=== PATIENT | female | born 1995 | race African-American/Black ===

== ENCOUNTER 2016-04-16 20:07 | Emergency (ER) | payer OTHER ==
[~2016-04-16] VITALS: Ht 165.1 cm; Wt 65.0 kg
[2016-04-16 20:15] VITALS: TEMP 36.7; Ht 165.1 cm; Wt 65.0 kg
[2016-04-16] MEDS ORDERED: CEFTRIAXONE SOD 350MG/ML 1 GM VIAL IM STA (20:30)
[2016-04-16] MEDS ORDERED: AZITHROMYCIN 250 MG TAB PO STA (20:30)
--- NOTE | 2016-04-16 20:45 | EMERGENCY ROOM VISIT NOTE ---
History First contact with patient: 20:26 Chief Complaint: STD FEMALE Stated Complaint: TESTED POSITIVE FOR GONORRHEA History of Present Illness The patient is a 21 year old female who presents to the Emergency Room requesting treatment for a positive gonorrhea test. The patient reports that she is sexually active with one male. The patient denies any vaginal drainage, pelvic pain or other symptoms. She denies any possibility of , and denies any prior history of STI. Review of Systems 6 system review was performed and was negative except for pertinent positives and negatives as indicated in history of present illness Social History Smoking Status: Never Smoker Alcohol Use: occasionally Drug Use: none Occupation Status: [employer] Current/Historical Medications Scheduled Control Pills ( Control Pills), 1 TAB PO DAILY Physical Exam Vital Signs Date Time Temp Pulse Resp B/P Pulse Ox O2 Delivery O2 Flow Rate FiO2 04/16/16 20:15 36.7 99 18 143/96 94 Room Air Physical Exam CONSTITUTIONAL: Healthy and well nourished. Alert and oriented X 3 with positive affect. HEENT: Normocephalic, atraumatic. Pupils equal, round and reactive. No scleral icterus or conjunctival injection. NECK: Full active range of motion without discomfort. GASTROINTESTINAL: Bowel sounds present in all quadrants. Abdomen is soft and nontender to palpation. GENITOURINARY: With a female nurse manager community present, speculum and bimanual pelvic exam were performed. Normal external genitalia. Speculum exam shows no abnormal fluid within the vaginal vault. Cervix was visualized with a nulliparous appearance. No cervical bleeding or drainage. Bimanual exam shows no adnexal tenderness to palpation. Negative cervical motion tenderness. MUSCULOSKELETAL: Full range of motion of all joints without discomfort. INTEGUMENTARY: No rash or other significant dermatologic conditions noted. NEUROLOGIC: No focal neurologic deficits noted. Medical Decision & Procedures Laboratory Results STD probes for GC and chlamydia were ordered and are pending. ED Course Patient history and physical exam were performed. Nurse's notes were reviewed. The patient was offered treatment, but requested that a repeat STI testing be performed. I did explain to the patient that this testing is rather accurate, but the patient still elected to the retested. Speculum and bimanual pelvic exam were performed. STI cultures were ordered and are pending. The patient was still administered Rocephin 250 mg IM, and Zithromax 1 g orally. The patient was instructed to follow-up with her PCP for further STI counseling and to discuss the need for HIV testing. She is welcome to call the emergency department in 5 days for results. The patient voiced understanding of all discharge instructions, and was happy with plan of care. Medical Decision Impression Primary Impression: STI (sexually transmitted infection) Departure Information Dispostion Home / Self-Care Forms HOME CARE DOCUMENTATION FORM, IMPORTANT VISIT INFORMATION Patient Instructions My [facility] Additional Instructions Follow-up with your family doctor as needed to discuss need for HIV testing
[2016-04-16] MEDS ORDERED: BCPILLS PO (20:46)
[2016-04-16 21:58] VITALS: BP 126/81; PULSE 95; O2SAT 95
[2016-04-19 01:54] LABS: CHLAMYDIA TRACH RNA*** NOT DETECTED (NOT DETECTED); GC (NEIS GONORRHOEAE)RNA** NOT DETECTED (NOT DETECTED)
== END 2016-04-16 22:00 | disposition home or self-care (01) ==
LOC: C.EDB 20:08 → C.EDD 22:00
DX: A64 Unspecified sexually transmitted disease (principal)

== ENCOUNTER 2016-04-23 11:25 | Emergency (ER) | payer OTHER ==
[~2016-04-23] VITALS: Ht 162.6 cm; Wt 64.5 kg
[~2016-04-23 11:25] MED LIST: BCPILLS PO
[2016-04-23 11:28] VITALS: TEMP 37; Ht 162.6 cm; Wt 64.5 kg
[2016-04-23 12:37] LABS: PREG INTERNAL NEGATIVE QC NEG CLEAR BACKGROUND; PREG INTERNAL POSITIVE QC POS CONTROL LINE
--- NOTE | 2016-04-23 12:43 | DIAGNOSTIC IMAGING REPORT ---
ULTRASOUND OF THE PELVIS CLINICAL HISTORY: Pelvic pain. Spotting. COMPARISON STUDY: No priors. TECHNIQUE: Real-time, grayscale, and color flow sonography of the pelvis is performed both transabdominally and endovaginally. Images are reviewed in the transverse and longitudinal planes. FINDINGS: Uterus: The uterus is normal in size and echotexture, measuring 7.0 x 4.3 x 5.7 cm. Endometrium: The endometrium is normal in appearance, and the endometrial stripe is normal in thickness measuring up to 0.9 cm. Ovaries: The ovaries are normal in size and morphology. The right ovary measures 4.7 x 2.2 x 2.2 cm and the left ovary measures 3.0 x 1.8 x 2.8 cm. There are small bilateral ovarian follicles. Normal Doppler waveforms are shown within both ovaries. Pelvis: There is trace free fluid in the cul-de-sac. No concerning adnexal lesion is seen. IMPRESSION: 1. No acute sonographic abnormality is seen in the pelvis. 2. There is trace free fluid in the cul-de-sac, likely within physiologic limits. Electronically signed by: Marciano Kovacs M.D. 04/23/2016 12:41 PM Dictated Date/Time: 04/23/2016 12:40 PM
[2016-04-23 12:53] VITALS: BP 126/79; PULSE 71; O2SAT 100
--- NOTE | 2016-04-23 13:25 | EMERGENCY ROOM VISIT NOTE ---
History First contact with patient: 11:34 Chief Complaint: PELVIC PAIN Stated Complaint: PELVIC PAIN History of Present Illness The patient is a 21 year old female who presents to the Emergency Room with complaints of persistent pelvic cramping/pain. The patient was seen by me one week ago after she had a positive gonorrhea STI culture performed at [facility]. Her pelvic exam was benign except for some yellowish cervical drainage. Her gonorrhea and chlamydia cultures were negative from that visit. Trichomonas prep was also negative. The patient relates that she has had intermittent severe pelvic pain for the past month. She is coming up on her fourth week of her menstrual cycle, and is currently on her last week of oral contraceptives. She started to notice worsening cramping and spotting yesterday. The patient reports that she usually develops menstrual bleeding 2 days after her last control pill. She also denies any history of dysmenorrhea. The patient reports that she tried to follow-up with the BLOCK P[facility]ER at [facility], but they stated that they do not take her insurance. She then called her insurance provider, and was instructed to return to the emergency department. The patient will be going home next week for spring, and plans to see her BLOCK PAVER then. She currently denies any urinary symptoms, vaginal drainage or malodor. She denies any pain extending into her upper abdomen or back. Denies fevers, chills, nausea, vomiting, constipation or diarrhea. Patient denies . She is in a monogamous relationship without condom use. Review of Systems 10 system review was performed and was negative except for pertinent positives and negatives as indicated in history of present illness Past Medical/Surgical History Medical Problems: (1) Hypokalemia Surgical Problems: (1) No history of previous surgery Family History No significant family history Social History Smoking Status: Never Smoker Alcohol Use: occasionally Drug Use: none Marital Status: single Occupation Status: [employer] Current/Historical Medications Scheduled Control Pills ( Control Pills), 1 TAB PO DAILY Allergies Coded Allergies: No Known Allergies (Unverified , 04/23/16) Physical Exam Vital Signs Date Time Temp Pulse Resp B/P Pulse Ox O2 Delivery O2 Flow Rate FiO2 04/23/16 12:53 71 20 126/79 100 04/23/16 11:28 37.0 91 20 143/102 100 Room Air Physical Exam CONSTITUTIONAL: Healthy and well nourished. Alert and oriented X 3 with positive affect. She does not appear in any acute distress. HEENT: Normocephalic, atraumatic. Pupils equal, round and reactive. NECK: Full active range of motion without discomfort. RESPIRATORY: Clear to auscultation bilaterally with no wheezing, crackles, rhonchi or stridor. CARDIOVASCULAR: Regular rate and rhythm with no murmurs, rubs or gallops. GASTROINTESTINAL: Bowel sounds present in all quadrants. Abdomen is soft and nontender to palpation. Negative McBurney's point tenderness. No left lower quadrant tenderness to palpation. Negative CVA tenderness. GENITOURINARY: With a female nurse dry cell and battery assembler present, repeat speculum and bimanual pelvic exam was performed. Speculum exam again shows no external skin changes. Vaginal canal is normal without erythema or edema. The patient has a trace amount of dark blood in the vaginal vault. No persistent cervical drainage noted. Bimanual exam shows no adnexal tenderness bilaterally. Negative cervical motion tenderness. Ovaries could not be palpated. MUSCULOSKELETAL: Full range of motion of all joints without discomfort. INTEGUMENTARY: No rash or other significant dermatologic conditions noted. NEUROLOGIC: No focal neurologic deficits noted. Medical Decision & Procedures ER Provider Diagnostic Interpretation: Pelvic ultrasound shows no acute findings. Radiologist report is as follows: ULTRASOUND OF THE PELVIS CLINICAL HISTORY: Pelvic pain. Spotting. COMPARISON STUDY: No priors. TECHNIQUE: Real-time, grayscale, and color flow sonography of the pelvis is performed both transabdominally and endovaginally. Images are reviewed in the transverse and longitudinal planes. FINDINGS: Uterus: The uterus is normal in size and echotexture, measuring 7.0 x 4.3 x 5.7 cm. Endometrium: The endometrium is normal in appearance, and the endometrial stripe is normal in thickness measuring up to 0.9 cm. Ovaries: The ovaries are normal in size and morphology. The right ovary measures 4.7 x 2.2 x 2.2 cm and the left ovary measures 3.0 x 1.8 x 2.8 cm. There are small bilateral ovarian follicles. Normal Doppler waveforms are shown within both ovaries. Pelvis: There is trace free fluid in the cul-de-sac. No concerning adnexal lesion is seen. Laboratory Results Test 04/23/16 11:07 Urine Test NEG (NEG) ED Course Patient history and physical exam were performed. Nurse's notes were reviewed. Vital signs were reviewed and were normal except for an elevated blood pressure 143/102. The patient is afebrile. Pelvic exam and pelvic ultrasound were otherwise normal. Urine was also negative. At this point, the patient's ultrasound studies were burned to a disc, and she was encouraged to follow up with her BLOCK PAVER next week over spring. She was encouraged to take ibuprofen as needed for pain. Return to the emergency department for significant worsening pain, significant vaginal bleeding or other concerning symptoms. The patient was happy with plan of care, voiced understanding of all discharge instructions, refused any analgesics while in the emergency department, and rated her discomfort a 2 out of 10 at the time of discharge. Medical Decision The patient presents with complaint of pelvic pain. She was here 1 week ago because she had a positive gonorrhea culture performed at another facility. Her repeat cultures 1 week ago were negative. Trichomonas prep was also negative. The patient has no persistent yellowish cervical drainage. She also has no cervical motion tenderness on exam. Differentials considered included STI, PID, bacterial vaginitis, UTI, ovarian cyst/torsion, leiomyoma and endometriosis. Impression Primary Impression: Pelvic pain Departure Information Referrals No Doctor, Assigned (PCP) [facility] Instructions [facility]
== END 2016-04-23 13:22 | disposition home or self-care (01) ==
LOC: C.EDB 11:26
DX: R10.2 Pelvic and perineal pain (principal)